=== PATIENT | male | born 1950 | race Caucasian/White ===

== ENCOUNTER 2023-08-25 10:25 | Outpatient (OUT) | payer MEDICARE, MEDICAID, SELFPAY ==
--- NOTE | 2023-08-25 10:39 | XR_ITS ---
[facility] [id number] Patient Name: SUDHA HUSSEIN MRN: [id number] date: 1950 Sex: M Assigned Patient Location: RAD Current Patient Location: RAD Accession/Order Number: [id number] Exam Date: 08/25/2023 10:48 Report Date: 08/25/2023 12:39 At the request of: UTE HERRERA Procedure: XR cervical spine 2-3V EXAMINATION: XR cervical spine 2-3V HISTORY: Cervical Pain M54.2, Osteoarthritis M19.90 COMPARISON: No relevant comparison available. FINDINGS: BONES: Normal alignment with no acute fracture or spondylolisthesis. Mild to moderate spondylosis and facet osteoarthropathy DISC SPACES: Mild to moderate multilevel disc space narrowing most significant C3-C4 PARASPINOUS: Negative. No paraspinous abnormality is seen. OTHER: C6 and C7 are not seen XR/XR cervical spine 2-3V IMPRESSION: Moderate degenerative changes Electronically authenticated by: ABHI WELLER Date: 08/25/2023 12:39
== END 2023-08-25 10:26 | disposition home or self-care (01) ==
LOC: RAD 10:33
PROVIDERS: PCP Family Medicine; Visit Provider Family Medicine
DX: M54.2 Cervicalgia (principal); M19.90 Unspecified osteoarthritis, unspecified site
CPT/HCPCS: 72040

== ENCOUNTER 2023-09-08 13:34 | Outpatient (RCR) | payer MEDICARE, MEDICAID, SELFPAY | END 2023-10-08 16:38 | disposition home or self-care (01) | LOC: PT 13:34 | PROVIDERS: PCP Family Medicine; Visit Provider Family Medicine | DX: M54.2 Cervicalgia (principal) | CPT/HCPCS: 97012; 97110; 97140; 97161 ==